=== PATIENT | male | born 1945 | race Caucasian/White ===

== ENCOUNTER → 2018-03-10 | Outpatient (CLI) | payer OTHER | END | disposition home or self-care (01) | LOC: PCVCIMAG 07:55 | DX: I25.10 Atherosclerotic heart disease of native coronary artery without angina pectoris (principal); I10 Essential (primary) hypertension; E78.00 Pure hypercholesterolemia, unspecified; E78.5 Hyperlipidemia, unspecified; Z79.899 Other long term (current) drug therapy; Z87.891 Personal history of nicotine dependence | CPT/HCPCS: 78452; 93017; A9500; G0463 ==

== ENCOUNTER → 2018-09-11 | Outpatient (CLI) | payer OTHER | END | disposition home or self-care (01) | LOC: PCVCCLINIC 12:09 | PROVIDERS: ATTEND Internal Medicine Cardiovascular Disease | DX: I25.10 Atherosclerotic heart disease of native coronary artery without angina pectoris (principal); I10 Essential (primary) hypertension; E78.00 Pure hypercholesterolemia, unspecified; R00.1 Bradycardia, unspecified; Z79.82 Long term (current) use of aspirin; Z87.891 Personal history of nicotine dependence | CPT/HCPCS: 93005; G0463 ==

== ENCOUNTER → 2019-03-10 | Outpatient (CLI) | payer OTHER ==
--- NOTE | 2019-03-10 10:21 | PCVCIMAG ---
APPROVED REPORT Study performed: 03/10/2019 08:52:52 EXAM: Comprehensive 2D, Doppler, and color-flow Echocardiogram Patient Location: Echo lab Room #: 3Status: routine BSA: 1.94 HR: 38 bpmBP: 110/70 mmHg Rhythm: Bradycardia Other Information Study Quality: Good Risk Factors: Cardiac Risk Factors: HTN, Hyperlipidemia Indications CAD 2D Dimensions IVSd: 10.46 (7-11mm)LVOT Diam: 19.00 (18-24mm) LVDd: 47.21 mm PWd: 10.84 (7-11mm)Ascending Ao: 29.56 (22-36mm) LVDs: 33.49 (25-40mm) Left Atrium: 39.28 (27-40mm) Aortic Root: 29.91 mm LV Single Plane 4CH: 52.79 % LV Single Plane 2CH: 51.49 % Biplane EF: 52.4 % Volumes Left Atrial Volume (Systole) Single Plane 4CH: 52.24 mLSingle Plane 2CH: 77.46 mL LA ESV Index: 35.00 mL/m2 Aortic Valve AoV Peak Ronald.: 1.21 m/s AO Peak Gr.: 5.84 mmHgLVOT Max P.51 mmHg LVOT Max V: 1.06 m/s OLIVIA Vmax: 2.50 cm2 Mitral Valve E/A Ratio: 2.5 MV Decel. Time: 315.17 ms MV E Max Ronald.: 1.12 m/s MV A Ronald.: 0.45 m/s IVRT: 87.66 ms TDI E/Lateral E': 11.20E/Medial E': 18.67 Medial E' Ronald.: 0.06 m/s Lateral E' Ronald.: 0.10 m/s Pulmonary Valve PV Peak Ronald.: 1.06 m/sPV Peak Gr.: 4.47 mmHg Pulmonary Vein P Vein S: 0.68 m/sP Vein A: 0.25 m/s P Vein D: 0.62 m/sP Vein A Dur.: 115.3 msec P Vein S/D Ratio: 1.10 Tricuspid Valve TR Peak Ronald.: 2.72 m/sRAP Estimate: 7.00 mmHg TR Peak Gr.: 29.50 mmHg PA Pressure: 37.00 mmHg Left Ventricle The left ventricle is normal size. There is hypokinesis of the mid to basal inferior wall. There is normal left ventricular wall thickness. Left ventricular systolic function is mildly decreased. LVEF is 45%. Right Ventricle Right ventricle is mildly dilated. The right ventricular systolic function is normal. Atria Left atrium is mildly dilated. Right atrium is dilated. Aortic Valve The aortic valve is normal in structure. Trace aortic regurgitation. There is no aortic valvular stenosis. Mitral Valve There is mitral annular calcification. Mild mitral regurgitation. No evidence of mitral valve stenosis. Tricuspid Valve The tricuspid valve is normal in structure. Mild tricuspid regurgitation. Pulmonary artery pressure is 37 mmHg. Pulmonic Valve The pulmonary valve is normal in structure. There is no pulmonic valvular regurgitation. Great Vessels The aortic root is normal in size. IVC is normal in size and collapses >50% with inspiration. Pericardium There is no pericardial effusion. <Conclusion> The left ventricle is normal size. There is normal left ventricular wall thickness. Left ventricular systolic function is mildly decreased. Right ventricle is mildly dilated. Left atrium is mildly dilated. Trace aortic regurgitation. There is mitral annular calcification. Mild mitral regurgitation. Mild tricuspid regurgitation. Pulmonary artery pressure is 37 mmHg.
== END | disposition home or self-care (01) ==
LOC: PCVCIMAG 08:43
PROVIDERS: ATTEND Internal Medicine Cardiovascular Disease
DX: I08.1 Rheumatic disorders of both mitral and tricuspid valves (principal); I25.10 Atherosclerotic heart disease of native coronary artery without angina pectoris
CPT/HCPCS: 93306

== ENCOUNTER → 2019-09-07 | Outpatient (CLI) | payer OTHER | END | disposition home or self-care (01) | LOC: PCVCCLINIC 14:00 | PROVIDERS: ATTEND Internal Medicine Cardiovascular Disease | DX: I10 Essential (primary) hypertension (principal); I25.10 Atherosclerotic heart disease of native coronary artery without angina pectoris; E78.00 Pure hypercholesterolemia, unspecified; Z95.1 Presence of aortocoronary bypass graft; Z79.82 Long term (current) use of aspirin; Z79.899 Other long term (current) drug therapy; Z87.891 Personal history of nicotine dependence | CPT/HCPCS: 93005; G0463 ==